=== PATIENT | male | born 1935 | race Caucasian/White ===

== ENCOUNTER 2023-10-29 07:15 | Outpatient (CLI) | payer OTHER ==
[~2023-10-29 07:15] MED LIST: ASPIR-LOW81 MG PO; DOXAZOSIN MESYLA2 MG PO; FERROUS FUMARA324 MG PO; FISH OIL 1,2001 EACH PO; GLIPIZIDE10 MG PO; GLUCOSAMINE1000 MG PO; INTEGRA PLUS C1 EACH PO; LISINOPRIL-HCTZ1 TA7 PO; METFORMIN HCL500 M1 PO; ONE DAILY1 TA2 PO; OXYC1TAB9 PO; VERAPAMIL ER240 MG PO; XARELTO10 MG PO; ZOCOR40 MG PO; [UNRECOGNIZED DRUG - CODE] PO
== END 2023-10-29 07:26 | disposition home or self-care (01) ==
LOC: TOM 07:15
PROVIDERS: ATTEND Internal Medicine Gastroenterology
DX: K56.600 Partial intestinal obstruction, unspecified as to cause (principal); Z12.11 Encounter for screening for malignant neoplasm of colon